=== PATIENT | female | born 1965 | race African-American/Black ===

== ENCOUNTER 2017-06-10 12:35 | Emergency (ER) | payer OTHER ==
[~2017-06-10] VITALS: Ht 167.6 cm; Wt 87.1 kg
--- NOTE | ~2017-06-10 | CR2 ---
[facility] A Service of [facility] & [facility] [place] RADIOLOGY TEXT RESULTS PATIENT: MARIE GARCIA LOCATION: [facility] : 65 UNIT #: [id number] AGE: [address]: Rosy Christian MD SEX: F ORDER DR: [id number] [facility] [address] [place], [place] [address] [id number] E MR#: [id number] Acc #: [id number] NAME: MARIE GARCIA : 1965 SEX: F STUDY DATE/TIME: 06/10/2017 13:56 UNIT: [facility] ROOM: STUDY DESCRIPTION: CR Abdomen Acute Series Attending Physician: Rosy Christian M.D. Referring Physician: Sudhir Calhoun M.D. Ordering Physician: Rosy Christian M.D. Primary Care Physician: Sudhir Calhoun M.D. MEDICAL IMAGING REPORT This report is preliminary unless electronic signature is present EXAM Acute abdomen series HISTORY Nausea and vomiting today. Weakness. Shortness of air. FINDINGS Flat and upright views of the abdomen and upright view of the chest demonstrate the bowel gas pattern is normal. No bowel dilatation or displacement. Surgical clips in the right upper quadrant. No free air. Upright view of the chest demonstrates the cardiac size and pulmonary vascularity are normal. No infiltrates or effusions. Resection of the lateral right clavicle. IMPRESSION No acute findings. Normal bowel gas pattern. No active disease in the chest. Dictated by... Jimi Mejia M.D. THIS IS AN ELECTRONICALLY VERIFIED REPORT Jimi Mejia M.D. at 06/11/2017 11:44 PM DFL/melyssa TD: 06/11/2017 01:00 JOB #: [id number] MEDICAL IMAGING REPORT Page 1 of 1 COPY
[~2017-06-10 12:35] MED LIST: ACETAMINOPHEN PO; ACTONEL; ALBUTEROL17 G1 IH; ALBUTEROL17 GM INH; AMOXICILLIN; ATENOLOL PO; ATENOLOL-CHLORT1 TA2 PO; BACLOFEN10 MG; CLARITIN10 MG; CLARITIN10 MG PO; CLEOCIN HCL300 M1 PO; CLONIDINE; COMBIVENT INH14.7 GM INH; DELSYM30 MG/5 M1 PO; DYRENIUM50 MG DOB; FAMOTIDINE PO; FLEXERIL10 MG PO; FLOVENT HFA12 GM INH; HCTZ PO; HUMIBID L.1 TAB.SR . PO; HYDROCODON-ACE1 EAC7 PO; LIPITOR; LIPITOR PO; LOPID600 MG PO; LORATADINE PO; MAXZIDE 75/50 T1 TA1; MAXZIDE 75/50 T1 TAB PO; NAPROSYN-EC500 M1 PO; ORUDIS75 M1 PO; PHENERGAN W/CO120 ML PO; PREDNISONE10 MG PO; PREMARIN; PREMARIN PO; ROBITUSSIN A-C-S1 ML DOB; TRIAMTERENE-HC1 EAC1 PO; VICODIN PO; ZITHROMAX PO
[2017-06-10 13:23] LABS: URINE SOURCE CLEAN CATCH
[2017-06-10 13:39] LABS: BASOPHIL# 0.1 X10e3 (0-0.3); BASOPHIL% 0.6 % (0-2.5); EOSINOPHIL% 0.3 % (0.0-7.0); HEMATOCRIT 40.9 % (35.0-45.0); HEMOGLOBIN 14.1 gm/dL (12.0-16.0); LYMPHOCYTE# 1.1 X10e3 (1.0-3.5); LYMPHOCYTE% 10.9 % (17.0-45.0); MEAN CORPUSCULAR HEMOGLOBIN 31.3 PG (28-34); MEAN CORPUSCULAR HGB CONC 34.4 g/dL (30-36); MEAN PLATELET VOLUME 7.9 FL (6.5-11.5); MONOCYTE# 0.3 X10e3 (0-1.0); MONOCYTE% 2.8 % (3.0-12.0); NEUTROPHIL# 8.9 X10e3 (1.5-7.1); NEUTROPHIL% 85.4 % (40-75); PLATELET COUNT 289 X10e3 (140-420); RED BLOOD COUNT 4.49 X10e (3.90-5.30); RED CELL DISTRIBUTION WIDTH 14.3 % (11.0-15.5); WHITE BLOOD COUNT 10.4 X10e3 (4.0-10.5)
[2017-06-10 13:40] LABS: DIFF IND NO
[2017-06-10 13:43] LABS: URINE APPEARANCE CLEAR; URINE BILIRUBIN NEG (NEG); URINE BLOOD 2+ (NEG); URINE COLOR YELLOW; URINE GLUCOSE NEG (NEG); URINE KETONE NEG (NEG); URINE LEUKOCYTE ESTERASE NEG (NEG); URINE NITRATE NEG (NEG); URINE PH 5.5 (5-8); URINE PROTEIN 2+ (NEG); URINE SPECIFIC GRAVITY 1.025 (1.003-1.035); URINE UROBILINOGEN 0.2 MG/DL (NEG)
[2017-06-10 13:48] LABS: URINE BACTERIA AUWI NEG (NEGATIVE); URINE SQUAMOUS EPITHELIAL CELL NONE SEEN /[HPF]; UWBCS1 AUWI 0-2 (0-5)
[2017-06-10 14:00] LABS: CULTURE INDICATED? NO
[2017-06-10 14:08] LABS: ALBUMIN SERUM 4.1 g/dL (3.5-5.0); BILIRUBIN, DIRECT 0.1 mg/dL (0.0-0.2); BILIRUBIN,INDIRECT 0.2 mg/dL (0.0-0.9); BILIRUBIN,TOTAL 0.3 mg/dL (0.2-2.0); BUN/CREATININE RATIO 18.57; CALCIUM SERUM 8.9 mg/dL (8.4-10.2); CREATININE SERUM 0.7 mg/dL (0.6-1.4); GLOM FILT RATE Estimated 115.5 mL/min (>60); POTASSIUM 3.2 mmol/L (3.5-5.1); PROTEIN TOTAL SERUM 7.5 g/dL (6.0-8.3)
== END 2017-06-10 14:58 | disposition home or self-care (01) ==
LOC: CED 12:35
PROVIDERS: Emergency Medicine
DX: R11.2 Nausea with vomiting, unspecified (principal); E78.5 Hyperlipidemia, unspecified; I10 Essential (primary) hypertension; Z90.49 Acquired absence of other specified parts of digestive tract; Z88.2 Allergy status to sulfonamides; Z79.899 Other long term (current) drug therapy
CPT/HCPCS: 36415; 74022; 80048; 80076; 81003; 82150; 83690; 85025; 96361; 96372; 96374; 99284; J0500; J2405